=== PATIENT | male | born 1940 | race Hispanic/Latino ===

== ENCOUNTER → 2023-09-20 | Outpatient (CLI) | payer OTHER | END | disposition home or self-care (01) | LOC: RAH 07:46 | PROVIDERS: ATTEND Internal Medicine | DX: K80.20 Calculus of gallbladder without cholecystitis without obstruction (principal); R82.2 Biliuria; N28.1 Cyst of kidney, acquired; K83.8 Other specified diseases of biliary tract | CPT/HCPCS: 76700 ==